=== PATIENT | female | born 1995 | race Caucasian/White ===

== ENCOUNTER → 2024-07-08 | Outpatient (CLI) | payer BC, SELFPAY ==
--- NOTE | 2024-07-08 15:00 | XR_ITS ---
Examination: Transvaginal ultrasound of the pelvis, complete Technique: Transvaginal sonographic images pelvis performed using olivas scale imaging Exam date and time: July 08, 2024 1508 hours INDICATIONS: Vaginal bleeding and irregular heavy menses beginning 1.5 months ago FINDINGS: Didelphic uterus, right uterine component 8.5 x 3.7 x 4.4 cm , left 7.6 x 2.9 x 4.0 cm Endometrial stripe 0.4 and 1.0 cm No uterine mass or intrauterine gestation Right ovary obscured by bowel gas Left ovary 3.7 x 1.7 x 3.3 cm arterial flow small follicles Mild fluid in the cul-de-sac IMPRESSION: Uterus didelphys
--- NOTE | 2024-07-08 15:00 | XR_ITS ---
Examination: Pelvic ultrasound, transabdominal, complete Technique: Transabdominal ultrasound of the pelvis performed using grayscale imaging Date and time of exam: July 08, 2024 1501 hours INDICATIONS: Vaginal bleeding irregular heavy menses 1.5 months FINDINGS: Uterus 9.0 x 3.6 x 5.3 cm Endometrial stripe 0.4 cm No uterine mass or intrauterine gestation Right ovary 2.8 x 1.2 x 2.1 cm arterial flow Left ovary 3.9 x 1.6 x 2.5 cm arterial flow small follicles Mild fluid in the cul-de-sac IMPRESSION: No uterine mass or intrauterine gestation
[2024-07-08 17:00] LABS: Free T4 (Free Thyroxine) 1.23 ng/dL (0.89-1.76); Thyroid Stimulating Hormone 0.91 uIU/mL (0.55-4.78)
[2024-07-08 17:01] LABS: Follicle Stimulating Hormone 7.49 mIU/mL (See Note)
[2024-07-14 07:38] LABS: Luteinizing Hormone* 7.2 mIU/mL
== END | disposition home or self-care (01) ==
LOC: CDIM 15:05 → COPL 15:25
PROVIDERS: PCP Family Medicine; Referring Provider Nurse Practitioner Women's Health; Visit Provider Radiology Diagnostic Radiology
DX: Q51.28 Other and unspecified doubling of uterus (principal); N93.9 Abnormal uterine and vaginal bleeding, unspecified
CPT/HCPCS: 36415; 76830; 76856; 83001; 83002; 84439; 84443

== ENCOUNTER → 2024-10-14 | Outpatient (CLI) | payer BC, SELFPAY ==
--- NOTE | 2024-10-14 14:30 | XR_ITS ---
Examination: CT maxillofacial, without intravenous contrast. 2-D sagittal reconstructions. 3-D reconstructions. Date and time of exam:October 14, 2024 1408 hrs. Indications: Sinus pressure and pain beginning March 2024 CTDI: vol (mGy):7.1 DLP: (mGycm):97.7 Technique: Multiple axial images of maxillofacial region, 3.0 mm slice thickness. 2-D sagittal and coronal reconstructions. 3-D reconstructions. Low dose protocols were performed. One or more of the following dose reduction techniques were used; automated exposure control, adjustment of the mA and/or KV according to patient size, use of iterative reconstruction technique. Findings: Trace mucosal thickening frontal air cells Mild mucosal thickening ethmoid air cells No occlusion ostiomeatal complexes Mild hypertrophy inferior nasal turbinates Trace mucosal thickening maxillary antra and sphenoid air cells No fluid levels No polyps or retention cysts No definite nasopharyngeal mass Negative for acute mastoiditis Negative for otitis media The optic globes appear intact No cerebral lesion noted Impression: Minimal sinusitis.
== END | disposition home or self-care (01) ==
PROVIDERS: Referring Provider Otolaryngology; Visit Provider Otolaryngology
DX: J32.9 Chronic sinusitis, unspecified (principal)
CPT/HCPCS: 70486

== ENCOUNTER → 2025-03-05 | Outpatient (CLI) | payer BC, SELFPAY ==
[2025-03-05 14:20] LABS: Misc Send Out* See Sep Rpt
[2025-03-11 06:34] LABS: IgE, Serum* 3555 kU/L (114 OR LESS)
== END | disposition home or self-care (01) ==
LOC: COPL 13:59
PROVIDERS: PCP Family Medicine; Referring Provider Allergy & Immunology; Visit Provider Allergy & Immunology
DX: T78.1XXA Other adverse food reactions, not elsewhere classified, initial encounter (principal)
CPT/HCPCS: 36415; 82785

== ENCOUNTER 2025-08-05 23:53 | Emergency (ER) | payer BC, SELFPAY ==
[2025-08-05 23:54] VITALS: BMI 30.1
[2025-08-06 00:12] VITALS: BP 122/80; PULSE 105; RESP 20; TEMP 36.8; O2SAT 99
--- NOTE | 2025-08-06 00:27 | EDNOTE_ITS ---
ED Asthma RME/HPI General Chief Complaint: Shortness of Breath/Dyspnea Stated Complaint: I FEEL I CAN'T GET A BREATH IN, 14WK Time Seen by Provider: 08/06/25 00:25 Arrival date/time: 08/05/25 23:53 30F with history of asthma presents to ED with several days of cough and worsening wheezing/SOB. Patient is also currently 14 weeks , but denies ab pain and vaginal bleeding. Patient already out patient neg covid and flu tests, but would like to be tested for RSV given son recently had it. Limitations: no limitations Related Data Home Medications ?Medication ?Instructions ?Recorded ?Confirmed metoclopramide HCl 5 mg tablet 5 mg PO TIDWM 03/07/19 03/07/19 (Reglan) Previous Rx's ?Medication ?Instructions ?Recorded prednisone 50 mg tablet 50 mg PO QDAY #5 tabs ondansetron 8 mg disintegrating 8 mg PO Q8H PRN nausea and 09/24/23 tablet vomiting #20 tabs prednisone 50 mg tablet 50 mg PO QDAY 5 days #5 tabs 08/06/25 Allergies Allergy/AdvReac Type Severity Reaction Status Date / Time almond Allergy Severe Swelling Verified 08/05/25 23:54 of Lip/Tongue/Throat cashew nut Allergy Severe Swelling Verified 08/05/25 23:54 of Lip/Tongue/Throat coconut Allergy Severe Swelling Verified 08/05/25 23:54 of Lip/Tongue/Throat pecan nut Allergy Severe Swelling Verified 08/05/25 23:54 of Lip/Tongue/Throat pistachio nut Allergy Severe Swelling Verified 08/05/25 23:54 of Lip/Tongue/Throat walnut Allergy Severe Swelling Verified 08/05/25 23:54 of Lip/Tongue/Throat Review of Systems Review of Systems Systems Reviewed: All systems reviewed, normal except as documented Cardiovascular Cardiovascular: Reports dyspnea Respiratory Respiratory: Reports as per HPI, Reports cough and Reports dyspnea Past Medical History Past Medical History NEUROLOGIC: Negative Seizures CARDIAC: Positive Hypertension; Negative Congestive Heart Failure RESPIRATORY: Negative Chronic Obstructive Pulmonary Disease (COPD) GASTROINTESTINAL: Positive Gastrointestinal Disorders GENITOURINARY: Negative Renal Disease ENDOCRINE: Negative Diabetes Mellitus Type 1 or Diabetes Mellitus Type 2 OTHER HISTORY: Negative Blood Transfusions, Blood Transfusion Reaction or Anesthesia Reactions Social History SMOKING STATUS: Former smoker ED Exam General Limitations: Present no limitations General appearance: Present alert and in no apparent distress Head Head exam: Present atraumatic Neck Neck exam: Present normal inspection, full ROM and trachea midline Chest Chest inspection: Present normal inspection and symmetric chest wall rise Respiratory Respiratory exam: Present wheezes and prolonged expiratory phase Neurological Exam Neurological exam: Present alert and oriented X3 Psychiatric Psychiatric exam: Present normal affect and normal mood Skin Skin exam: Present warm, dry, intact and normal color Course Quality Measures none Orders Category Date Time Status Bedside RSV Test NOW Care 08/06/25 00:25 Active EKG (ED ONLY) *Do not use* NOW Care 08/05/25 23:59 Completed EKG (ED Only) Stat Exams 08/05/25 23:59 Ordered dexAMETHasone INJ [Decadron Inj] Med 08/06/25 00:25 Once 10 mg PO X1 ONE Vital Signs Vital signs: Vital Signs Temperature 98.2 F 08/06/25 00:12 Pulse Rate 105 H 08/06/25 00:12 Respiratory Rate 20 08/06/25 00:12 Blood Pressure 122/80 08/06/25 00:12 Pulse Oximetry (%) 99 08/06/25 00:12 Oxygen Delivery Method Room Air 08/06/25 00:12 Asthma MDM Narrative MDM Narrative:: 30F with history of asthma presents to ED with several days of cough and worsening wheezing/SOB. Patient is also currently 14 weeks , but denies ab pain and vaginal bleeding. Patient already out patient neg covid and flu tests, but would like to be tested for RSV given son recently had it. Physical exam reveals wheezing in lungs and prolonged expiration. Patient is afebrile, calm, and alert. Swabs neg. Meds improved symptoms and relieved wheezing. Patient data External records reviewed:: [facility] previous records Clinical information provided by:: patient Social determinants that could affect healthcare access:: none Patient has the following chronic illnesses:: asthma How is presenting disease/condition affected by chronic disease/condition?: exacerbated by Evaluation data The following diagnostics were reviewed and interpreted by me:: lab results Lab and/or radiology exams considered but not ordered:: ordered Interpretation Summary: above Medications / Prescriptions Medications or Prescriptions considered but not ordered:: ordered Medication administrations:: Medication Administration History Dexamethasone Sodium Phosphate (Dexamethasone Sod Phos Inj 10 Mg/Ml Vial) 10 mg PO X1 ONE Stop: 08/06/25 00:26 Consultations Consultation(s) initiated? (list below): No Diagnosis Differential diagnosis asthma: Acute exacerbation, Status asthmaticus, Acute asthmatic bronchitis, PE, Pneumonia, COPD exacerbation, Pulmonary edema systolic, Pulmonary edema dystolic, ARDS, Pneumothorax and Foreign body in trachea Most likely diagnosis given after review of the tests above:: asthma exacerbation and URI Admission Indicated Admission indicated?: not indicated Admission Request Was there a request for admission?: No Disposition Plan Disposition Plan: Discharge Discharge Attestation Discharge Attestation: The patient and all family members were given an opportunity to ask questions and understood the discharge instructions. Discharge instructions specifically effects, indications for sooner follow up or return to the emergency department, and the expected course of current diagnosis. Patient condition: Stable Discharge Plan Plan Patient Disposition: HOME (Self Care) Discharge Disposition comment: Stable Prescriptions/Referrals Prescriptions/Med Rec: New prednisone 50 mg tablet 50 mg PO QDAY 5 Days Qty: 5 0RF No Action metoclopramide HCl [Reglan] 5 mg Tablet 5 mg PO TIDWM prednisone 50 mg tablet 50 mg PO QDAY Qty: 5 0RF ondansetron 8 mg tablet,disintegrating 8 mg PO Q8H PRN (Reason: nausea and vomiting) Qty: 20 0RF Problem List Clinical Impression: Asthma with exacerbation, URI (upper respiratory infection) Patient/Caregiver Discharge Instructions Education Materials: ED Asthma, Acute (Adult), ED URI, Viral, No Abx (Adult) Additional Instructions: Please follow-up with PCP within 24-48 hours and return immediately if symptoms worsen. Ibuprofen can be used for fever/pain control. Keep hydrated. Advance diet as tolerated. Print Language: Turkish Stand Alone Forms: Patient Portal Info Letter JONATHAN/TY Supervising Physician JONATHAN/TY Supervising Physician: Dr. Baker
[2025-08-06 01:35] VITALS: PULSE 81; RESP 18; O2SAT 99
[2025-08-06] MEDS: ALBUTEROL/IPRATROPIUM (Duoneb) RT SOL 3 ML NEBU INH (01:35)
[2025-08-06 02:10] VITALS: BP 131/75; PULSE 87; RESP 18; TEMP 36.8; O2SAT 99
== END 2025-08-06 02:15 | disposition home or self-care (01) ==
LOC: SERX 08-06 03:03
PROVIDERS: Emergency Provider Emergency Medicine; PCP Family Medicine
DX: O99.512 Diseases of the respiratory system complicating pregnancy, second trimester (principal); J45.901 Unspecified asthma with (acute) exacerbation; J06.9 Acute upper respiratory infection, unspecified; O99.891 Other specified diseases and conditions complicating pregnancy; R00.0 Tachycardia, unspecified; Z87.891 Personal history of nicotine dependence; Z3A.14 14 weeks gestation of pregnancy
CPT/HCPCS: 87634; 93005; 94640; 99283; A9270; J1100

== ENCOUNTER → 2025-08-05 | Outpatient (CLI) | payer BC, SELFPAY ==
[2025-08-05 12:31] LABS: Influenza A Ag Negative; Influenza B Ag Negative
[2025-08-05 17:51] LABS: COVID-19 Confirmatory PCR Negative (Neg)
== END | disposition home or self-care (01) ==
LOC: COPL 11:18
PROVIDERS: PCP Student in an Organized Health Care Education/Training Program; Referring Provider Student in an Organized Health Care Education/Training Program; Visit Provider Student in an Organized Health Care Education/Training Program
DX: R05.9 Cough, unspecified (principal)
CPT/HCPCS: 87502; 87635